=== PATIENT | female | born 1960 | race African-American/Black ===

== ENCOUNTER 2017-09-28 23:34 | Emergency (ER) | payer OTHER ==
[2017-09-28] MEDS ORDERED: predniSONE 20 MG TABLET (UD) ONE (23:39)
[2017-09-28] MEDS ORDERED: diphenhydrAMINE HCL 25 MG CAPSULE (FP) PO ONE (23:40)
[2017-09-28] MEDS ORDERED: predniSONE 20 MG TABLET (UD) PO ONE (23:42)
[2017-09-28] MEDS ORDERED: diphenhydrAMINE HCL 50 MG CAPSULE PO ONE (23:42)
--- NOTE | 2017-09-28 23:43 | PDOC ---
History of Present Illness - General Chief Complaint: Allergic Reaction Stated Complaint: ALLERGIC REACTION Time Seen by Provider: 09/28/17 23:38 History Source: Patient Exam Limitations: No Limitations - History of Present Illness Initial Comments: 09/28/17 23:38 This is a 57-year-old female who took a probiotic this evening and shortly after taking it began to break out in hives. Patient denies any shortness of breath, sensation throat is closing or any other complaints. Patient said the hives migratory and are a little better at this point. Patient did not take anything for the hives but was concerned so came in for evaluation. Patient denies history of similar symptoms in the past. This is a first-time patient is a retired taken a probiotic. PAST MEDICAL HISTORY: no significant history PAST SURGICAL HISTORY: no significant history FAMILY HISTORY: no pertinant history SOCIAL HISTORY: Pt lives with family and is employed. MEDICATIONS: reviewed ALLERGIES: As per nursing notes Review of Systems General: No fevers or chills, no weakness, no weight loss HEENT: No change in vision. No sore throat,. No ear pain CardioVascular: No chest pain or shortness of breath Respiratory:No cough, or wheezing. Gastrointestinal: no nausea, vomitting, diarrhea or constipation, No rectal bleeding Genitourinary: No dysuria, hematuria, or frequency Musculoskeletal: No joint or muscle pain or swelling Neurologic: No headache, vertigo, dizziness or loss of consciousness Psychiatric: nor depression Skin: Hives Endocrine: no increased thirst or abnormal weight change Allergic: no skin or latex allergy All other systems reviewed and normal GENERAL: The patient is awake, alert, and fully oriented, in no acute distress. HEAD: Normal with no signs of trauma. Posterior oropharynx there is no erythema, angioedema or abnormalities EYES: Pupils equal, round and reactive to light, extraocular movements intact, sclera anicteric, conjunctiva clear. CHEST: Lungs are clear to auscultation bilaterally there is no wheezing. EXTREMITIES: Normal range of motion, no edema. NEUROLOGICAL: Normal speech, normal gait. grossly intact PSYCH: Normal mood, normal affect. SKIN: Warm, Dry, normal turgor, there are hives of the trunk and upper extremities. Assessment and plan: This is a 57-year-old female who comes in complaining of an acute ALLERGIC reaction that consists of hives secondary to taking a probiotic. Patient given prednisone and Benadryl and discharged patient will follow-up with her primary care doctor as needed Past History - Past Medical History Allergies/Adverse Reactions: Allergies Allergy/AdvReac Type Severity Reaction Status Date / Time No Known Allergies Allergy Verified 04/16/12 20:58 Home Medications: Ambulatory Orders Meloxicam [Mobic] 15 mg PO BID 07/11/12 Cardiac Disorders: Yes (RAPID ARRTHYMIA) - Surgical History Cardiac Surgery: Yes (ABLATION) - Suicide/Smoking/Psychosocial Hx Smoking Status: No Smoking History: Never smoked Number of Cigarettes Smoked Daily: 0 Cigars Per Day: 0 *DC/Admit/Observation/Transfer Diagnosis at time of Disposition: Hives - Discharge Dispostion Disposition: HOME Condition at time of disposition: Good Decision to Admit order: No - Referrals - Patient Instructions Additional Instructions: Get the prescription filled tomorrow for the Medrol Dosepak and take as per the pack instructions. In addition to that you can also take Benadryl one or 2 tablets as often as every 4-6 hours if needed however usually the Medrol Dosepak is adequate. Do not take any more the probiotic. Yogurt is a better probiotic for U then the pill form anyway. Return to the emergency department immediately with ANY new, persistent or worsening symptoms. Continue any medications as previously prescribed by your physician. You should follow up with your primary doctor as soon as possible regarding today's emergency department visit. . Please make sure your doctor reviews the results of your emergency evaluation. Thank you for coming to the Emergency Department today for your care. It was a pleasure to see you today. Please note that your evaluation is INCOMPLETE until you follow-up with your doctor. - Post Discharge Activity
[2017-09-28 23:50] VITALS: BP 130/88; PULSE 80; TEMP 98.2
[2017-09-29] MEDS ORDERED: predniSONE 20 MG TABLET (UD) ONE (00:19)
== END 2017-09-29 00:06 | disposition home or self-care (01) ==
LOC: FER 23:34
DX: L50.9 Urticaria, unspecified (principal)
CPT/HCPCS: 99282-25

== ENCOUNTER 2023-02-11 21:21 | Inpatient (IN) | payer OTHER ==
[2023-02-11] MEDS ORDERED: SODIUM CHLORIDE 0.9% 500 ML INFUS.BAG IV ONE (21:49)
[2023-02-11 22:18] LABS: HEMATOCRIT 32.2 % (32.4-45.2); MCH 29.5 pg (25.7-33.7); MCHC 34.1 g/dl (32.0-36.0); MEAN CELL VOLUME 86.6 fl (80-96); MEAN PLT VOLUME 8.2 fl (7.5-11.1); PLATELET COUNT 251.5 10^3/uL (134-434); RBC 3.72 10^6/uL (3.60-5.2); RDW 13.8 % (11.6-15.6); WHITE BLOOD COUNT 3.4 10^3/uL (4.0-10.8)
[2023-02-11 22:27] LABS: PLATELET ESTIMATE ADEQUATE
[2023-02-11 22:30] LABS: INR 1.1 (0.83-1.09); PROTHROMBIN TIME (PATIENT) 12.8 SEC (9.7-13.0)
[2023-02-11 22:40] LABS: BILIRUBIN,TOTAL 0.5 mg/dl (0.2-1); CALCIUM 9.3 mg/dl (8.5-10.1); POTASSIUM 4.3 mmol/L (3.5-5.1); TOT PROT 6.8 g/dl (6.4-8.2)
[2023-02-11] MEDS ORDERED: PANTOPRAZOLE SODIUM 40 MG VIAL IVPUSH ONE (23:02)
[2023-02-11] MEDS ORDERED: PANTOPRAZOLE SODIUM 40 MG VIAL ONE (23:19)
[2023-02-12] MEDS ORDERED: PANTOPRAZOLE SODIUM 80 MG in SODIUM CHLORIDE 100 ML IVPB SCH (01:15)
[2023-02-12] MEDS ORDERED: PANTOPRAZOLE SODIUM 40 MG VIAL ONE (01:22)
[2023-02-12] MEDS ORDERED: MAG HYDROX/AL HYDROX/SIMETH 30 ML UNIT-DOSE CUP PO ONE (02:06)
[2023-02-12] MEDS ORDERED: MAG HYDROX/AL HYDROX/SIMETH 30 ML UNIT-DOSE CUP ONE (02:08)
[2023-02-12 02:40] VITALS: BMI 30.7
[2023-02-12 05:44] LABS: BASO % 0.8 % (0-2.0); EOS % 0.9 % (0-4.5); HEMATOCRIT 27.4 % (32.4-45.2); HEMOGLOBIN 9.4 GM/dL (10.7-15.3); LYMPH % 35.8 % (8-40); MCH 29.3 pg (25.7-33.7); MCHC 34.3 g/dl (32.0-36.0); MEAN CELL VOLUME 85.5 fl (80-96); MONO % 5.2 % (3.8-10.2); NEUT % 57.3 % (42.8-82.8); PLATELET COUNT 225 10^3/uL (134-434); RBC 3.21 M/mm3 (3.60-5.2); RDW 13.4 % (11.6-15.6); WHITE BLOOD COUNT 3.7 K/mm3 (4.0-10.0)
[2023-02-12] MEDS: PANTOPRAZOLE SODIUM 80 MG in SODIUM CHLORIDE 100 ML IVPB SCH ×2 (08:38→16:48)
[2023-02-12 09:04] LABS: HEMATOCRIT 27.1 % (32.4-45.2); HEMOGLOBIN 9.1 G/dL (10.7-15.3); MCH 29.2 pg (25.7-33.7); MCHC 33.5 g/dl (32.0-36.0); MEAN PLT VOLUME 8.7 fl (7.5-11.1); PLATELET COUNT 257.1 10^3/uL (134-434); RBC 3.11 10^6/uL (3.60-5.2); RDW 13.9 % (11.6-15.6); WHITE BLOOD COUNT 4.1 10^3/uL (4.0-10.8)
[2023-02-12 09:07] LABS: CALCIUM 8.5 mg/dl (8.5-10.1); CREATININE 0.9 mg/dl (0.6-1.3); POTASSIUM 4.1 mmol/L (3.5-5.1)
[2023-02-12] MEDS: SODIUM CHLORIDE 1,000 ML IV SCH (09:42)
[2023-02-12] MEDS: MUPIROCIN 2% TOPICAL OINTMENT FOR DECOLONIZATION NS SCH ×2 (11:00→21:30)
[2023-02-12 12:19] LABS: HEMATOCRIT 24.2 % (32.4-45.2); HEMOGLOBIN 8.1 GM/dL (10.7-15.3); MCH 28.7 pg (25.7-33.7); MCHC 33.6 g/dl (32.0-36.0); MEAN CELL VOLUME 85.5 fl (80-96); MEAN PLT VOLUME 7.8 fl (7.5-11.1); PLATELET COUNT 225 10^3/uL (134-434); RBC 2.83 M/mm3 (3.60-5.2); RDW 13.5 % (11.6-15.6); WHITE BLOOD COUNT 2.9 K/mm3 (4.0-10.0)
[2023-02-12 19:51] LABS: HEMATOCRIT 23.7 % (32.4-45.2); HEMOGLOBIN 8.1 GM/dL (10.7-15.3); MCHC 34.4 g/dl (32.0-36.0); MEAN CELL VOLUME 84.5 fl (80-96); MEAN PLT VOLUME 7.8 fl (7.5-11.1); PLATELET COUNT 218 10^3/uL (134-434); RDW 13.4 % (11.6-15.6); WHITE BLOOD COUNT 3.8 K/mm3 (4.0-10.0)
[2023-02-12] MEDS ORDERED: CHLORHEXIDINE GLUCONATE 4% CLEANSER FOR DECOLONIZATION TP SCH (22:00)
[2023-02-13] MEDS: SODIUM CHLORIDE 1,000 ML IV SCH (01:52)
[2023-02-13] MEDS: PANTOPRAZOLE SODIUM 80 MG in SODIUM CHLORIDE 100 ML IVPB SCH (03:10)
[2023-02-13 06:42] LABS: BASO % 0.8 % (0-2.0); EOS % 0.8 % (0-4.5); LYMPH % 33.3 % (8-40); MEAN CELL VOLUME 85.8 fl (80-96); MEAN PLT VOLUME 8.3 fl (7.5-11.1); MONO % 6.2 % (3.8-10.2); NEUT % 58.9 % (42.8-82.8); PLATELET COUNT 207 10^3/uL (134-434); RBC 2.68 M/mm3 (3.60-5.2); WHITE BLOOD COUNT 4.1 K/mm3 (4.0-10.0)
[2023-02-13 06:51] LABS: INR 1.14 (0.83-1.09); PROTHROMBIN TIME (PATIENT) 13.2 SEC (9.7-13.0)
[2023-02-13 06:53] LABS: ACTIVATED PTT 32.9 SECONDS (25.2-36.5)
[2023-02-13 07:03] LABS: POTASSIUM 3.7 mmol/L (3.5-5.1)
[2023-02-13 07:05] LABS: BLOOD UREA NITROGEN 9.4 mg/dL (7-18); CALCIUM 8.1 mg/dL (8.5-10.1); MAGNESIUM 1.8 mg/dL (1.8-2.4)
[2023-02-13 07:08] LABS: CREATININE 0.8 mg/dL (0.55-1.3); PHOSPHOROUS 3.4 mg/dL (2.5-4.9)
[2023-02-13] MEDS ORDERED: PANTOPRAZOLE SODIUM 40 MG VIAL IVPUSH SCH (10:00)
[2023-02-13] MEDS: MUPIROCIN 2% TOPICAL OINTMENT FOR DECOLONIZATION NS SCH (11:38)
[2023-02-13] MEDS ORDERED: SODIUM CHLORIDE 1,000 ML IV SCH (18:41)
[2023-02-14 09:10] LABS: HEMATOCRIT 23.6 % (32.4-45.2); HEMOGLOBIN 8.1 GM/dL (10.7-15.3); MCH 29.5 pg (25.7-33.7); MCHC 34.4 g/dl (32.0-36.0); MEAN CELL VOLUME 85.8 fl (80-96); MEAN PLT VOLUME 8.2 fl (7.5-11.1); PLATELET COUNT 223 10^3/uL (134-434); RBC 2.75 M/mm3 (3.60-5.2); WHITE BLOOD COUNT 5.7 K/mm3 (4.0-10.0)
[2023-02-14 09:40] LABS: POTASSIUM 3.6 mmol/L (3.5-5.1)
[2023-02-14 09:49] LABS: BLOOD UREA NITROGEN 5.9 mg/dL (7-18); CALCIUM 8.4 mg/dL (8.5-10.1); MAGNESIUM 1.9 mg/dL (1.8-2.4)
[2023-02-14 09:52] LABS: PHOSPHOROUS 3.2 mg/dL (2.5-4.9)
[2023-02-14 09:53] LABS: CREATININE 0.9 mg/dL (0.55-1.3)
[2023-02-14] MEDS ORDERED: PANTOPRAZOLE 40 MG TABLET PO SCH (10:00)
[2023-02-14] MEDS ORDERED: FERROUS SO4 325 MG TABLET (FP) PO SCH (10:00)
[2023-02-14 16:01] VITALS: BP 140/70; PULSE 91; RESP 20; TEMP 98.7
== END 2023-02-14 19:07 | disposition home or self-care (01) | DRG 244 ==
LOC: FER 21:21 → FM/S 02-12 01:25 → JICU 02-12 09:30 → J8W 02-13 09:02
PROVIDERS: ADMIT Internal Medicine; ATTEND Nurse Practitioner Acute Care
PROC: 0DJD8ZZ Inspection of Lower Intestinal Tract, Via Natural or Artificial Opening Endoscopic (ICD-10-PCS; 2023-02-12)
PROC: 0W3P8ZZ Control Bleeding in Gastrointestinal Tract, Via Natural or Artificial Opening Endoscopic (ICD-10-PCS; principal; 2023-02-12 11:00)
DX: K57.31 Diverticulosis of large intestine without perforation or abscess with bleeding (principal); D62 Acute posthemorrhagic anemia; I10 Essential (primary) hypertension; E78.5 Hyperlipidemia, unspecified; D50.9 Iron deficiency anemia, unspecified
CPT/HCPCS: 0241U-QW; 36415; 74174-TC; 80048; 80053; 82962; 83735; 84100; 85025; 85027; 85610; 85730; 86850; 86900; 86901; 93005; 99285-25